=== PATIENT | female | born 1980 | race Two or more races ===

== ENCOUNTER 2023-03-23 08:19 | Emergency (ER) | payer BC, MEDICAID ==
[~2023-03-23] VITALS: Ht 162.6 cm; Wt 84.2 kg
[2023-03-23 09:31] VITALS: BP 125/87; PULSE 99; RESP 20; TEMP 98.6; O2SAT 100
[2023-03-23] MEDS ORDERED: GUAI100S6 PO ×3 (09:48→11:03)
== END 2023-03-23 09:53 | disposition home or self-care (01) ==
LOC: ER 08:19
DX: J20.9 Acute bronchitis, unspecified (principal)
CPT/HCPCS: 71045